=== PATIENT | male | born 1965 | race Caucasian/White ===

== ENCOUNTER 2018-11-01 16:20 | Emergency (ER) | payer BC ==
--- NOTE | 2018-11-01 16:25 | ERPHSYRPT ---
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 pt scraped head on metal. no loc. pt concerned, because of the bleeding there was a laceration. pts last tetanus was 3 to 4 years ago. Timing/Duration: today Quality: burning Severity: mild Location: scalp Associated Symptoms: denies symptoms Allergies/Adverse Reactions: acetaminophen [From Vicodin] Allergy (Verified 11/01/18 16:44) hydrocodone [From Vicodin] Allergy (Verified 11/01/18 16:44) Home Medications: Bupropion HCl [Wellbutrin Xl] 300 mg PO DAILY 11/01/18 [History] - Review of Systems Constitutional: No Symptoms Eyes: No Symptoms Ears, Nose, & Throat: No Symptoms Respiratory: No Symptoms Cardiac: No Symptoms Abdominal/Gastrointestinal: No Symptoms Genitourinary Symptoms: No Symptoms Musculoskeletal: No Symptoms Skin: Other (scalp injury) Neurological: No Symptoms Psychological: No Symptoms Endocrine: No Symptoms Hematologic/Lymphatic: No Symptoms Immunological/Allergic: No Symptoms All Other Systems: Reviewed and Negative - Past Medical History Neurological History: No Pertinent History ENT History: No Pertinent History Cardiac History: No Pertinent History Respiratory History: No Pertinent History Endocrine Medical History: No Pertinent History Musculoskeletal History: No Pertinent History GI Medical History: No Pertinent History History: No Pertinent History Psycho-Social History: No Pertinent History Male Reproductive Disorders: No Pertinent History - Past Surgical History Neuro Surgical History: No Pertinent History Cardiac: No Pertinent History Respiratory: No Pertinent History Gastrointestinal: No Pertinent History Genitourinary: No Pertinent History Musculoskeletal: No Pertinent History Male Surgical History: No Pertinent History - Nursing Vital Signs Nursing Vital Signs: Initial Vital Signs Temperature 98.0 F 11/01/18 16:22 Pulse Rate 93 H 11/01/18 16:22 Respiratory Rate 18 11/01/18 16:22 Blood Pressure 154/106 11/01/18 16:22 O2 Sat by Pulse Oximetry 96 11/01/18 16:22 Pain Scale Pain Intensity 0 - Physical Exam General Appearance: no apparent distress, alert, anxiety Eye Exam: PERRL/EOMI, eyes nml inspection Ears, Nose, Throat Exam: normal ENT inspection, moist mucous membranes Neck Exam: normal inspection, non-tender, supple, full range of motion Respiratory Exam: airway intact, No chest tenderness, No respiratory distress Gastrointestinal/Abdomen Exam: No tenderness Rectal Exam: not done Neurologic Exam: alert, oriented x 3, cooperative, sole rougher II-XII nml as tested, normal mood/affect, nml cerebellar function, nml station & gait, sensation nml Skin Exam: abrasion (1cm top of scalp. no fb. no bleeding. no laceration) Lymphatic Exam: No adenopathy O2 Delivery: Room Air - Course Nursing assessment & vital signs reviewed: Yes - Progress Progress: unchanged Counseled pt/family regarding: diagnosis - Departure Departure Disposition: Home Clinical Impression: Scalp abrasion Condition: Stable Critical Care Time: No Referrals: CHASTITY DELUNA, DO [Primary Care Provider] - Additional Instructions: keep site clean daily with soap and water. may use ibuprofen for pain if no contraindications
[2018-11-01 17:49] VITALS: BP 153/96; PULSE 86; O2SAT 94
== END 2018-11-01 17:47 | disposition home or self-care (01) ==
LOC: ED 16:20
DX: S00.01XA Abrasion of scalp, initial encounter (principal); W22.8XXA Striking against or struck by other objects, initial encounter
CPT/HCPCS: 99283